=== PATIENT | female | born 1945 | race American Indian/Alaskan Native ===

== ENCOUNTER 2017-05-08 09:40 | Outpatient (CLI) | payer MEDICARE ==
--- NOTE | 2017-05-08 10:07 | Mammography Report ---
BILATERAL MAMMOGRAM: FINDINGS: There are scattered fibroglandular densities (approximately 25%-50% glandular). No mass, distortion, suspicious calcification, or skin change is seen. No significant change compared to prior examination of December 2014. CAD was utilized. IMPRESSION: Negative mammogram. There is no mammographic evidence of malignancy. RECOMMENDATION: Follow-up per ACS guidelines. BI-RADS CATEGORY: 1 = Negative ACR BI-RADS MAMMOGRAPHIC CODES: 0 = Needs additional imaging evaluation; 1 = Negative; 2 = Benign; 3 = Probably benign; 4 = Suspicious; 5 = Malignant; 6 = Known biopsy-proven malignancy COMMENT: 1. Dense breast tissue, i.e., adenosis, fibrocystic changes, etc., may obscure an underlying neoplasm. 2. Approximately 10% of cancers are not detected with mammography. 3. A negative mammography report should not delay biopsy if a clinically suspicious mass is present. COMMENT: Patient follow-up letters are generated in [employer].
== END 2017-05-08 09:41 | disposition home or self-care (01) ==
LOC: MAMMO 09:40
DX: Z12.31 Encounter for screening mammogram for malignant neoplasm of breast (principal)
CPT/HCPCS: 77067; G0202

== ENCOUNTER 2017-06-19 08:27 | Outpatient (CLI) | payer MEDICARE ==
--- NOTE | 2017-06-19 09:50 | Mammography Report ---
BONE DENSITY STUDY: DEFINITIONS: BMD = Bone Mineral Density T-score = BMD related to mean peak bone mass of young adult (mean expressed in Standard Deviation) Z-score = Age matched BMD expressed in SD World Health Organization (WHO) Diagnostic Criteria Normal T-score > -1 SD Osteopenia T-score between -1 and -2.4 SD Osteoporosis T-score -2.5 SD or below FINDINGS: The weighted average BMD of lumbar spine L1-L4 is 0.929 with a T-score of -1.1. The weighted average BMD of hip is 0.884 with a T-score of -0.5. IMPRESSION: The patient's T-score is diagnostic for osteopenia and average relative risk for fracture. NOTE: BMD is not the only risk factor for fracture; also consider factors such as the patient's age, risk of falling, previous osteoporotic fracture, family history of osteoporotic fractures, current smoker, and low body weight. Hayward's triangle is a region of interest in femur, predominantly of trabecular bone. It is not a true anatomic site, and [facility] does not recommend its use clinically.
== END 2017-06-19 08:28 | disposition home or self-care (01) ==
LOC: MAMMO 08:27
PROVIDERS: ATTEND Obstetrics & Gynecology Gynecology
DX: M85.88 Other specified disorders of bone density and structure, other site (principal); N95.1 Menopausal and female climacteric states
CPT/HCPCS: 77080

== ENCOUNTER 2019-01-05 07:59 | Outpatient (CLI) | payer MEDICARE ==
--- NOTE | 2019-01-05 15:07 | Mammography Report ---
BILATERAL DIGITAL SCREENING MAMMOGRAM with CAD: 01/05/19 07:59:00 CLINICAL: Routine screening. COMPARISON:05/08/17 FINDINGS: There are scattered areas of fibroglandular density. No mass, architectural distortion or suspicious calcifications. IMPRESSION: No mammographic evidence of malignancy. BI-RADS CATEGORY: 2 -- Benign RECOMMENDATION: Routine mammographic screening in one year. COMMENT: Patient follow-up letters are generated by our [employer] application.
== END 2019-01-05 08:00 | disposition home or self-care (01) ==
LOC: MAMMO 07:59
PROVIDERS: ATTEND Nurse Practitioner Women's Health
DX: Z12.31 Encounter for screening mammogram for malignant neoplasm of breast (principal)
CPT/HCPCS: 77067